=== PATIENT | female | born 1980 | race American Indian/Alaskan Native ===

== ENCOUNTER 2017-02-25 23:31 | Emergency (ER) | payer MEDICAID, OTHER ==
[2017-02-25 23:47] VITALS: BP 154/110
[2017-02-25] MEDS ORDERED: ZOFRAN IV ONE (23:54)
[2017-02-25] MEDS ORDERED: MORPHINE IV ONE (23:54)
[2017-02-26] MEDS ORDERED: BOOSTRIX IM ONE (00:03)
[2017-02-26] MEDS ORDERED: CLEOCIN IM ONE (00:18)
[2017-02-26] MEDS ORDERED: TORADOL IM ONE (00:24)
--- NOTE | 2017-02-26 01:11 | Emergency Department Report ---
HPI - General Chief Complaint: Animal Bite Time Seen by Provider: 02/25/17 23:53 ED Past Medical Hx - Past Medical History Previous Medical History?: No Hx Hypertension: Yes - Surgical History Past Surgical History?: No Additional Surgical History: x 2. tubal ligation - Social History Smoking Status: Current Every Day Smoker Substance Use Type: None - Medications Home Medications: Home Medications Medication Instructions Recorded Confirmed Last Taken Type Butalb/Acetamin/Caff 50-325-40 1 each PO Q4H PRN #20 tablet 04/13/13 Unknown Rx [Fioricet] Metoprolol [Lopressor] 25 mg PO QDAY 04/13/13 04/13/13 04/12/13 06:00 History HYDROcodone/APAP 10-325 [Hardy 1 each PO Q8HR PRN #20 tablet 02/26/17 Unknown Rx 10/325] Sulfamethoxazole/Trimethoprim 1 each PO BID #20 tablet 02/26/17 Unknown Rx [Bactrim DS TAB] ED Review of Systems ROS: Stated complaint: DOG BITE Other details as noted in HPI Physical Exam - Physical Exam Vital Signs: Vital Signs 02/25/17 23:44 Temperature 98.8 F Pulse Rate 120 H Respiratory 22 Rate Blood Pressure 154/110 O2 Sat by Pulse 99 Oximetry Physical Exam: Physical Exam: - General Limitations: No Limitations General appearance: alert, in no apparent distress. - Head Head exam: Present: atraumatic, normocephalic - Eye Eye exam: Present: normal appearance - ENT ENT exam: Present: mucous membranes moist - Neck Neck exam: Present: normal inspection - Respiratory Respiratory exam: Present: normal lung sounds bilaterally. Absent: respiratory distress - Cardiovascular Cardiovascular Exam: Present: normal rhythm, normal rate. Absent: systolic murmur, diastolic murmur, rubs, gallop - GI/Abdominal GI/Abdominal exam: Present: soft, normal bowel sounds - Extremities Exam Extremities exam: Present: normal inspection - Back Exam Back exam: Present: normal inspection - Neurological Exam Neurological exam: Present: alert, oriented X3 - Psychiatric Psychiatric exam: normal affect and mood - Skin Skin exam: Present: warm, dry, intact, normal color. Absent: rash ED Course Vital Signs 02/25/17 23:44 Temperature 98.8 F Pulse Rate 120 H Respiratory 22 Rate Blood Pressure 154/110 O2 Sat by Pulse 99 Oximetry Critical care attestation.: If time is entered above; I have spent that time in minutes in the direct care of this critically ill patient, excluding procedure time. ED Disposition Disposition: - TO HOME OR SELFCARE Condition: Stable Prescriptions: HYDROcodone/APAP 10-325 [Hardy 10/325] 1 each PO Q8HR PRN #20 tablet PRN Reason: Pain Sulfamethoxazole/Trimethoprim [Bactrim DS TAB] 1 each PO BID #20 tablet Referrals: PRIMARY CAREMD [Primary Care Provider] - 3-5 Days RADHA WHITTAKER MD [Staff Physician] - 3-5 Days
--- NOTE | 2017-02-26 08:30 | XRay Report ---
RIGHT HAND RADIOGRAPHS INDICATION: Severe hand pain post trauma. COMPARISON: None similar. FINDINGS: Attempted AP, lateral and oblique right hand radiographs somewhat limited due to patient positioning and fingers held in partial flexion. However, grossly intact bones and joints. Soft tissue swelling/edema along dorsum of the hand, possibly extending to the forearm not excluded versus related to patient's body habitus. CONCLUSION: No acute right hand bony abnormality, though soft tissue swelling questioned, as described. Please correlate. Thank you for the opportunity to participate in this patient's care.
--- NOTE | 2017-02-26 08:36 | XRay Report ---
RIGHT WRIST RADIOGRAPHS INDICATION: Severe wrist pain post trauma. COMPARISON: None similar. FINDINGS: AP and lateral right wrist radiographs demonstrate intact bony articulation. Distal forearm soft tissue swelling and questionable volar laceration. CONCLUSION: No acute right wrist radiographic abnormality with questionable soft tissue swelling/injury, as described. Please correlate. Thank you for the opportunity to participate in this patient's care.
== END 2017-02-26 01:15 | disposition home or self-care (01) ==
LOC: ED 23:31
DX: S61.551A Open bite of right wrist, initial encounter (principal); I10 Essential (primary) hypertension; F17.200 Nicotine dependence, unspecified, uncomplicated; Z98.51 Tubal ligation status; W54.0XXA Bitten by dog, initial encounter; Y93.89 Activity, other specified; Y99.8 Other external cause status; Y92.89 Other specified places as the place of occurrence of the external cause
CPT/HCPCS: 73100; 73120; 90471; 90715; 96372; 99283; J1885

== ENCOUNTER 2017-05-01 12:18 | Emergency (ER) | payer OTHER ==
[2017-05-01] MEDS ORDERED: APRESOLINE IV ONE (13:18)
[2017-05-01 14:06] LABS: Basophils % (Auto) 0.3 % (0.0-1.8); Eosinophils % (Auto) 2.1 % (0.0-4.3); Hemoglobin 10.9 gm/dl (10.1-14.3); Mean Corpuscular HGB Conc 32 % (30-34); Mean Corpuscular Hemoglobin 26 pg (28-32); Mean Corpuscular Volume 82 fl (79-97); Platelet Count 262 K/mm3 (140-440); Red Blood Count 4.14 M/mm3 (3.65-5.03); Red Cell Distribution Width 16.7 % (13.2-15.2); White Blood Count 7.1 K/mm3 (4.5-11.0)
[2017-05-01 14:18] LABS: Anion Gap 18 mmol/L; BUN/Creatinine Ratio 17; Blood Urea Nitrogen 10 mg/dL (7-17); Calcium 8.9 mg/dL (8.4-10.2); Carbon Dioxide 27 mmol/L (22-30); Chloride 97.2 mmol/L (98-107); Glucose 88 mg/dL (65-100); Sodium 138 mmol/L (137-145)
[2017-05-01] MEDS ORDERED: NORMODYNE IV ONE (14:26)
[2017-05-01] MEDS ORDERED: DILAUDID IV ONE (14:26)
[2017-05-01 14:44] LABS: Bacteria,Urine 1+ /HPF (Negative); Bilirubin,Urine NEG (Negative); Blood,Urine SM (Negative); Ketones,Urine TR mg/dL (Negative); Leukocyte Esterase,Urine NEG (Negative); Mucus,Urine 3+ /HPF; Nitrite,Urine NEG (Negative); Protein,Urine <15 mg/dL mg/dL (Negative); Urobilinogen,Urine < 2.0 mg/dL (<2.0)
--- NOTE | 2017-05-01 14:59 | Cat Scan Report ---
CT scan of head without IV contrast: History: Hypertension headache. Findings: Ventricles are normal in size and midline in location. No evidence of acute ischemia, hemorrhage or mass. No extra axial fluid collection. Normal brainstem and cerebellum. Impression: No acute intracranial abnormality.
--- NOTE | 2017-05-01 15:33 | Emergency Department Report ---
HPI - General Chief Complaint: High BP Time Seen by Provider: 05/01/17 13:11 - HPI HPI: This is a 36 year-old female presents to the emergency department, driving herself and from work, after she was found to have very elevated blood pressure. The patient has been having a headache for the past day or so as well as some dizziness and she says that is how she knows that her blood pressure is elevated. She takes 25 mg of metoprolol daily but does not have a current primary care physician. She denies any tobacco use. She drinks one to 2 caffeinated drinks per day. She denies any vision change, slurred speech, chest pain or any neurological deficits. She has not taken anything for her symptoms prior to presentation. ED Past Medical Hx - Past Medical History Previous Medical History?: Yes Hx Hypertension: Yes - Surgical History Past Surgical History?: Yes Additional Surgical History: x 2. tubal ligation - Social History Smoking Status: Never Smoker Substance Use Type: None - Medications Home Medications: Home Medications Medication Instructions Recorded Confirmed Last Taken Type Butalb/Acetamin/Caff 50-325-40 1 each PO Q4H PRN #20 tablet 04/13/13 Unknown Rx [Fioricet] Metoprolol [Lopressor] 25 mg PO QDAY 04/13/13 04/13/13 04/12/13 06:00 History HYDROcodone/APAP 10-325 [[place] 1 each PO Q8HR PRN #20 tablet 02/26/17 Unknown Rx 10/325] Sulfamethoxazole/Trimethoprim 1 each PO BID #20 tablet 02/26/17 Unknown Rx [Bactrim DS TAB] Amlodipine Besylate [Norvasc] 5 mg PO QDAY #30 tablet 05/01/17 Unknown Rx ED Review of Systems ROS: Stated complaint: LIGHT HEADED, HIGH BLOOD PRESSURE, CHEST PAIN Other details as noted in HPI Comment: All other systems reviewed and negative Constitutional: denies: chills, fever Eyes: denies: eye pain, eye discharge, vision change ENT: denies: ear pain, throat pain Respiratory: denies: cough, shortness of breath, wheezing Cardiovascular: denies: chest pain, palpitations Gastrointestinal: denies: abdominal pain, nausea, diarrhea Genitourinary: denies: urgency, dysuria, discharge Musculoskeletal: denies: back pain, joint swelling, arthralgia Skin: denies: rash, lesions Neurological: headache. denies: numbness, paresthesias Physical Exam - Physical Exam Vital Signs: Vital Signs 05/01/17 05/01/17 05/01/17 12:43 13:29 13:30 Temperature 98.6 F Pulse Rate 87 80 76 Respiratory 16 18 25 H Rate Blood Pressure 193/125 O2 Sat by Pulse 98 Oximetry 05/01/17 05/01/17 05/01/17 13:41 14:00 14:30 Temperature Pulse Rate 97 H 87 91 H Respiratory 18 18 Rate Blood Pressure 206/141 206/141 147/90 O2 Sat by Pulse 100 99 Oximetry 05/01/17 05/01/17 14:44 15:00 Temperature Pulse Rate 91 H 96 H Respiratory 21 Rate Blood Pressure 147/90 156/104 O2 Sat by Pulse 97 Oximetry Physical Exam: GENERAL: The patient is well-developed well-nourished. HENT: Normocephalic. Atraumatic. Patient has moist mucous membranes. EYES: Extraocular motions are intact. Pupils equal reactive to light bilaterally. No nystagmus. NECK: Supple. Trachea is midline. CHEST/LUNGS: Clear to auscultation. There is no respiratory distress noted. HEART/CARDIOVASCULAR: Regular. There is no tachycardia. There is no gallop rub or murmur. ABDOMEN: Abdomen is soft, nontender. Patient has normal bowel sounds. There is no abdominal distention. Obese habitus. SKIN: Skin is warm and dry. NEURO: The patient is awake, alert, and oriented. The patient is cooperative. The patient has no focal neurologic deficits. The patient has normal speech. Cranial nerves II through XII grossly intact. MUSCULOSKELETAL: There is no tenderness or deformity. There is no limitation range of motion. There is no evidence of acute injury. ED Course Vital Signs 05/01/17 05/01/17 05/01/17 12:43 13:29 13:30 Temperature 98.6 F Pulse Rate 87 80 76 Respiratory 16 18 25 H Rate Blood Pressure 193/125 O2 Sat by Pulse 98 Oximetry 05/01/17 05/01/17 05/01/17 13:41 14:00 14:30 Temperature Pulse Rate 97 H 87 91 H Respiratory 18 18 Rate Blood Pressure 206/141 206/141 147/90 O2 Sat by Pulse 100 99 Oximetry 05/01/17 05/01/17 14:44 15:00 Temperature Pulse Rate 91 H 96 H Respiratory 21 Rate Blood Pressure 147/90 156/104 O2 Sat by Pulse 97 Oximetry ED Medical Decision Making - Lab Data Result diagrams: 05/01/17 13:47 05/01/17 13:47 - Radiology Data Radiology results: report reviewed CT of the head does not show any acute intracranial process including no ischemia, shift, mass, bleeding or skull fracture. - Medical Decision Making The patient was given a dose of hydralazine and a little bit of pain medication. Her blood pressure has come down to a much more reasonable level. CT of the head did not show any bleed, shift, mass or any acute process. Labs have been mostly unremarkable and do not show any etiology of her symptoms. EKG was done to look for any type of dysrhythmia but it does not show any dysrhythmia, ST elevation IA or signs of ischemia. Respiratory vitals have also been unremarkable. On physical exam there is no focal, motor or sensory deficits and her cranial nerves are intact. She was reevaluated multiple times for multiple hours and is feeling improved. She has been given multiple referrals for primary care. She will return to the ER with any worsening of her symptoms or any acute distress. We spoke about dietary and lifestyle changes to make. Discharge instructions were given while she was in the emergency department and all questions have been answered. - Differential Diagnosis tension headache, migraine, brain bleed Critical Care Time: No Critical care attestation.: If time is entered above; I have spent that time in minutes in the direct care of this critically ill patient, excluding procedure time. ED Disposition Clinical Impression: Headache Qualifiers: Headache type: unspecified Headache chronicity pattern: unspecified pattern Intractability: not intractable Qualified Code(s): R51 - Headache Hypertension Qualifiers: Hypertension type: essential hypertension Qualified Code(s): I10 - Essential ( primary) hypertension Disposition: DC-01 TO HOME OR SELFCARE Is pt being admited?: No Condition: Stable Instructions: Hypertension (ED), Acute Headache (ED) Additional Instructions: Please follow up with a primary care physician as soon as possible. I have given you multiple referrals for primary care physicians. Return to the emergency Department with any worsening of your symptoms or any acute distress. Please try and stay away from foods that are high in salt and caffeinated products to help with your blood pressure. Keep a blood pressure log. I have started you on a second blood pressure medication that has been name of Norvasc/ amlodipine. This medication is taken once per day, usually in the morning. Prescriptions: Amlodipine Besylate [Norvasc] 5 mg PO QDAY #30 tablet Referrals: PRIMARY CAREMD [Primary Care Provider] - 3-5 Days BUD MANLEY MD [Staff Physician] - 3-5 Days HOWARD LOVELL MD [Staff Physician] - 3-5 Days ROME MACKAY MD [Referring] - 3-5 Days Time of Disposition: 15:31
[2017-05-01 15:37] VITALS: BP 155/88
== END 2017-05-01 15:41 | disposition home or self-care (01) ==
LOC: ED 12:18
DX: I10 Essential (primary) hypertension (principal); R51 Headache
CPT/HCPCS: 36415; 70450; 80048; 81001; 84443; 84703; 85025; 93005; 93010; 96374; 96375; 99284; J0360; J1170